=== PATIENT | male | born 1955 | race Caucasian/White ===

== ENCOUNTER 2016-06-06 12:57 | Emergency (ER) | payer OTHER, BC ==
[~2016-06-06] VITALS: Ht 180.3 cm; Wt 83.0 kg
[~2016-06-06 12:57] MED LIST: ANALGESIC325 MG PO; ASPIR 8181 M1 PO; ATORVASTATIN CA40 MG PO; CLARITIN10 M3 PO; CLARITIN5 MG/5 ML PO; CRESTOR20 MG PO; HYDROCODON-ACE1 EAC7 PO; IMDUR60 MG PO; LISINOPRIL10 MG PO; METOPROLOL SUCC25 MG PO; NITROGLYCERIN0.4 MG SL; NITROQUICK0.4 MG PO; OMEGA 3-6-91200 MG PO; OMEPRAZOLE20 MG PO; PLAVIX75 MG PO; PROTONIX40 MG PO; TRICOR48 MG PO; ZESTRIL,PRINIV2.5 MG PO; ZOCOR80 MG PO
[2016-06-06 13:37] LABS: POINT-OF-CARE METER ID UU13113778
[2016-06-06 13:57] LABS: HEMATOCRIT 44.3 % (38.0-50.0); MCH 31.2 PG (29.0-34.0); MCHC 33.4 G/DL (30.0-36.0); RBC DIS.WIDTH-CV 12.9 % (11.8-14.6); RBC DIS.WIDTH-SD 44.2 % (39-53); RED BLOOD COUNT 4.75 M/uL (4.00-5.50); WHITE BLOOD COUNT 10.2 K/uL (4.1-10.2)
[2016-06-06 13:59] LABS: MCV 93.3 FL (86-99); PLATELET COUNT 255 K/uL (156-360)
[2016-06-06 14:08] LABS: CHLORIDE 99 mEq/L (99-109); POTASSIUM 4.9 mEq/L (3.7-5.4); SODIUM 129 mEq/L (136-147)
[2016-06-06 14:10] LABS: GLUCOSE 131 mg/dL (70-99)
[2016-06-06 14:11] LABS: ANION GAP 10 MEQ/L (2-14)
[2016-06-06 14:12] LABS: TOTAL BILIRUBIN 0.3 mg/dL (0.0-1.0)
[2016-06-06 14:14] LABS: ALKALINE PHOSPHATASE 72 IU/L (3-129); GFR ESTIMATE (CALCULATED) 36 mL/min/
[2016-06-06 14:15] LABS: UREA NITROGEN (BUN) 32 mg/dL (9-23)
[2016-06-06 14:17] LABS: LIPASE 74 U/L (1.0-51.0)
[2016-06-06 15:26] LABS: ADD MIUA? NO; BILIRUBIN NEGATIVE; BLOOD NEGATIVE; COLOR YELLOW ((YELLOW)); GLUCOSE (STRIP) NEGATIVE; KETONES NEGATIVE; LEUKOCYTES NEGATIVE; NITRITE NEGATIVE; PROTEIN (STRIP) NEGATIVE; SPECIFIC GRAVITY 1.013 (1.000-1.030); UROBILINOGEN 0.2 MG/DL (0.2-1.0)
[2016-06-06] MEDS ORDERED: COLACE100 MG PO (15:34)
[2016-06-06 15:55] VITALS: BP 135/69
== END 2016-06-06 15:57 | disposition home or self-care (01) ==
LOC: EME 12:57
PROVIDERS: Nurse Practitioner Family
DX: K59.00 Constipation, unspecified (principal); E86.0 Dehydration; R25.2 Cramp and spasm; E11.9 Type 2 diabetes mellitus without complications; I25.2 Old myocardial infarction; K21.9 Gastro-esophageal reflux disease without esophagitis; Z86.73 Personal history of transient ischemic attack (TIA), and cerebral infarction without residual deficits; Z79.82 Long term (current) use of aspirin; F17.200 Nicotine dependence, unspecified, uncomplicated
CPT/HCPCS: 74000; 74176; 80053; 81003; 82948; 83690; 85027; 99281; 99284; J7030

== ENCOUNTER 2017-09-25 23:23 | Emergency (ER) | payer OTHER, BC ==
[~2017-09-25] VITALS: Ht 180.3 cm; Wt 76.8 kg
[~2017-09-25 23:23] MED LIST changes: +COLACE100 MG PO
[2017-09-26 00:30] LABS: HEMOGLOBIN 13.6 G/DL (12.5-16.6); MCH 31.3 PG (29.0-34.0); MCV 92.2 FL (86-99); PLATELET COUNT 170 K/uL (156-360); RBC DIS.WIDTH-CV 14.6 % (11.8-14.6); RBC DIS.WIDTH-SD 49.2 % (39-53); RED BLOOD COUNT 4.34 M/uL (4.00-5.50)
[2017-09-26 00:38] LABS: ALBUMIN 3.5 g/dL (3.2-4.8); CHLORIDE 102 mEq/L (99-109); POTASSIUM 4.4 mEq/L (3.7-5.4); SODIUM 136 mEq/L (136-147)
[2017-09-26 00:40] LABS: GLUCOSE 110 mg/dL (70-99); TOTAL PROTEIN 6.2 g/dL (6.4-8.3)
[2017-09-26 00:40] LABS: INTER. NORMALIZED RATIO 1.7
[2017-09-26 00:42] LABS: TOTAL BILIRUBIN 0.7 mg/dL (0.0-1.0)
[2017-09-26 00:44] LABS: ALKALINE PHOSPHATASE 87 IU/L (3-129); CREATININE 1.7 mg/dL (0.6-1.3); GFR ESTIMATE (CALCULATED) 44 mL/min/ (58.99-99999); PHOSPHORUS 4.7 mg/dL (2.5-4.9)
[2017-09-26 00:45] LABS: UREA NITROGEN (BUN) 23 mg/dL (9-23)
[2017-09-26 00:46] LABS: AST (GOT) 17 IU/L (2-34)
[2017-09-26 00:47] LABS: ALT (GPT) 22 IU/L (3-49); LIPASE 45 U/L (1.0-51.0)
[2017-09-26 00:54] LABS: TROP-I INTERPRETATION NEGATIVE; TROPONIN-I < 0.01 ng/mL (0.0-0.30)
[2017-09-26 02:34] VITALS: BP 102/81
== END 2017-09-26 02:35 | disposition left against medical advice (07) ==
LOC: EME 23:23
PROVIDERS: Physician Assistant
DX: I48.91 Unspecified atrial fibrillation (principal); I50.9 Heart failure, unspecified; R60.0 Localized edema; K21.9 Gastro-esophageal reflux disease without esophagitis; E11.9 Type 2 diabetes mellitus without complications; Z86.73 Personal history of transient ischemic attack (TIA), and cerebral infarction without residual deficits; I25.2 Old myocardial infarction; F17.200 Nicotine dependence, unspecified, uncomplicated
CPT/HCPCS: 71046; 80053; 83690; 83735; 83880; 84100; 84484; 85027; 85610; 93005; 94640; 99281; 99285; J1940

== ENCOUNTER 2017-10-04 15:52 | Emergency (ER) | payer OTHER, BC ==
[~2017-10-04] VITALS: Ht 180.3 cm; Wt 76.6 kg
[2017-10-04 16:50] VITALS: BP 125/79
== END 2017-10-04 16:51 | disposition home or self-care (01) ==
LOC: EME 15:52
PROC: 0HQFXZZ Repair Right Hand Skin, External Approach (ICD-10-PCS; principal; 2017-10-04)
DX: S61.210A Laceration without foreign body of right index finger without damage to nail, initial encounter (principal); W26.8XXA Contact with other sharp object(s), not elsewhere classified, initial encounter; Y93.89 Activity, other specified
CPT/HCPCS: 99281; 99283